=== PATIENT | male | born 1995 | race American Indian/Alaskan Native ===

== ENCOUNTER 2018-03-05 15:08 | Emergency (ER) | payer SELFPAY ==
[2018-03-05 15:37] VITALS: BP 143/88; PULSE 88; RESP 18; TEMP 97.9; O2SAT 98
[2018-03-05] MEDS ORDERED: Alum-Mag Hydrox-Simethicone Susp (30 mL) PO STA (16:11)
--- NOTE | 2018-03-05 16:13 | C.PDOC ---
History Of Present Illness 23 year old male presents to the ED for evaluation of nausea, vomiting and diarrhea which began 3 days ago. Patient states that 4 days ago, he ate [place] food which consisted of beef and broccoli for two days. Patient has now resumed his usual diet. Patient reports crampy abdominal pain and 4-5 episodes of loose bowel movements per day. He denies fever, chills, or sick contacts. Time Seen by Provider: 03/05/18 16:06 Chief Complaint (Nursing): Abdominal Pain History Per: Patient History/Exam Limitations: no limitations Onset/Duration Of Symptoms: Days (3) Current Symptoms Are (Timing): Still Present Context: Food Radiation Of Pain To:: None Quality Of Discomfort: Cramping, "Pain" Associated Symptoms: Nausea, Vomiting, Diarrhea. denies: Fever, Chills Additional History Per: Patient Past Medical History Reviewed: Historical Data, Nursing Documentation, Vital Signs Vital Signs: Last Vital Signs Temp 97.9 F 03/05/18 15:36 Pulse 88 03/05/18 15:36 Resp 18 03/05/18 15:36 BP 143/88 03/05/18 15:36 Pulse Ox 98 03/05/18 15:36 - Medical History PMH: No Chronic Diseases Surgical History: No Surg Hx Family History: States: Unknown Family Hx - Social History Hx Alcohol Use: No Hx Substance Use: No - Immunization History Hx Tetanus Toxoid Vaccination: No Hx Influenza Vaccination: No Hx Pneumococcal Vaccination: No Review Of Systems Constitutional: Negative for: Fever, Chills Gastrointestinal: Positive for: Nausea, Vomiting, Abdominal Pain, Diarrhea Physical Exam - Physical Exam Appears: Non-toxic, No Acute Distress Skin: Normal Color, Warm, Dry, Other (plump skin ) Head: Atraumatic, Normacephalic Eye(s): bilateral: Normal Inspection Oral Mucosa: Moist Neck: Supple Chest: Symmetrical, No Deformity, No Tenderness Cardiovascular: Rhythm Regular, No Murmur Respiratory: Normal Breath Sounds, No Rales, No Rhonchi, No Wheezing Gastrointestinal/Abdominal: Bowel Sounds (active ), Soft, Tenderness (vague ), No Guarding, No Rebound Extremity: Normal ROM, Capillary Refill (less than 2 seconds ) Neurological/Psych: Oriented x3, Normal Speech, Normal Cognition ED Course And Treatment O2 Sat by Pulse Oximetry: 98 (on RA) Pulse Ox Interpretation: Normal Progress Note: Delphinex PO, Pepcid PO and Zofran PO given. Medical Decision Making Medical Decision Makin days n/v/d after [place] beef and broccoli x 2 days. BRAT diet educated no clinical dehydration Disposition Doctor Will See Patient In The: Office Counseled Patient/Family Regarding: Studies Performed, Diagnosis - Disposition Referrals: [facility] [Outside] [facility] [Outside] [facility] [Outside] [facility] [Outside] Disposition: HOME/ ROUTINE Disposition Time: 16:12 Condition: GOOD Additional Instructions: Avoid high risk [place] Food bland/BRAT diet for 3 days: Gatorade and plenty of water Bananas, white rice, applsauce, toast/bread Pepcid 20 mg 9AM and 9PM- lowers stomach acid from gastritis due to food int oxication Maalox 30 cc's (one tablespoon) 5x/day between meals- decreases intestinal discomfort Motrin 400-600 mg every 6 hours for vague belly pains Zofran 4 mg ODT (nausea medication) 1 tab every 8 hours as needed for nausea/vomiting (dissolves under tongue) Prescriptions: Ondansetron ODT [Zofran ODT] 4 mg PO Q6H PRN #6 odt PRN Reason: Nausea/Vomiting Instructions: Food Poisoning (DC) Forms: [facility] ([place]) - Clinical Impression Clinical Impression: Vomiting, Diarrhea - Scribe Statement The provider has reviewed the documentation as recorded by the Scribe (Joseline Camejo) Provider Attestation: All medical record entries made by the Scribe were at my direction and personally dictated by me. I have reviewed the chart and agree that the record accurately reflects my personal performance of the history, physical exam, medical decision making, and the department course for this patient. I have also personally directed, reviewed, and agree with the discharge instructions and disposition.
[2018-03-05] MEDS ORDERED: Aluminum Hydroxide/Magnesium Hydroxide Susp (30 mL) ONE (16:43)
== END 2018-03-05 17:10 | disposition home or self-care (01) ==
LOC: C.ER 15:08
DX: R11.10 Vomiting, unspecified (principal); R19.7 Diarrhea, unspecified